=== PATIENT | male | born 1960 | race Caucasian/White ===

== ENCOUNTER 2021-05-25 06:18 | Inpatient (IN) | payer MEDICAID ==
[~2021-05-25] VITALS: Ht 180.3 cm; Wt 96.6 kg
--- NOTE | 2021-05-25 06:30 | NUR ---
BIBRA C/O HAVING A 200 SYSTOLIC BP WITH PAIN BEHIND LEFT SHOULDER. 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 PATIENT ALERT AND ORIENTED X3. AMBULATORY WITH NON LABORED BREATHING. PLACED IN BED 09 ON MONITOR AND POX.
--- NOTE | 2021-05-25 06:54 | NUR ---
EMT @ BEDSIDE FOR EKG
--- NOTE | 2021-05-25 06:54 | NUR ---
BLOOD COLLECTED AND SENT TO LAB
--- NOTE | 2021-05-25 06:54 | NUR ---
Gail mcgregor in [facility] - 05/25/21 at 0654 by CAITY REYNOLD DONE AND SENT TO LAB
[2021-05-25] MEDS ORDERED: ASPIRIN 81 MG TAB.CHEW PO ONE (07:00)
[2021-05-25] MEDS ORDERED: ASPIRIN 325 MG TABLET ONE (07:09)
[2021-05-25 07:11] LABS: BASOPHILS # (AUTO) 0.1 K/uL (0.0-0.2); BASOPHILS % (AUTO) 0.7 % (0.0-2.0); EOSINOPHILS % (AUTO) 4.3 % (0.0-6.0); HEMATOCRIT 40 % (39-51); HEMOGLOBIN 13.7 g/dL (13.5-17.5); LYMPHOCYTES # (AUTO) 1.5 K/uL (0.8-4.8); LYMPHOCYTES % (AUTO) 20.9 % (20.0-44.0); MEAN CORPUSCULAR HGB CONC 35 g/dl (31.0-36.0); MEAN CORPUSCULAR VOLUME 94 fL (80-96); MONOCYTES # (AUTO) 0.8 K/uL (0.1-1.30); MONOCYTES % (AUTO) 11.8 % (2.0-12.0); NEUTROPHILS # (AUTO) 4.4 K/uL (1.8-8.9); NEUTROPHILS % (AUTO) 62.3 % (43.0-81.0); PLATELET COUNT (AUTO) 172 K/uL (150-450); RED BLOOD CELL COUNT(AUTO) 4.25 MIL/uL (4.5-6.0)
[2021-05-25 07:46] LABS: CALCIUM, SERUM 8.8 mg/dL (8.5-10.1); CREATININE 0.9 mg/dL (0.6-1.3); POTASSIUM 3.3 mmol/L (3.5-5.1)
--- NOTE | 2021-05-25 07:46 | NUR ---
CARDIOLOGY PAGED DR. MEMBRENO SPEAKING WITH DR. GARCIA.
--- NOTE | 2021-05-25 07:47 | NUR ---
[facility] CALLED ALLOPATHIC DOCTOR PAGED.
--- NOTE | 2021-05-25 07:51 | NUR ---
UPDATED NICOLE ON PT'S STATUS & WILL BE ADMITTED
[2021-05-25] MEDS ORDERED: ENOXAPARIN SODIUM 80 MG/0.8 ML DISP.SYRIN SQ ONE (08:00)
[2021-05-25] MEDS ORDERED: NITROGLYCERIN 0.4 MG/TAB BOTTLE SL ONE (08:00)
[2021-05-25] MEDS ORDERED: ENOXAPARIN SODIUM 100 MG/ML DISP.SYRIN SQ ONE (08:09)
[2021-05-25] MEDS ORDERED: NITROGLYCERIN 0.4 MG/TAB BOTTLE ONE (08:09)
--- NOTE | 2021-05-25 08:20 | NUR ---
THE PATIENT REFUSED TO TAKE SECOND TAB OF NITRO SL. RATES CHEST PAIN 3/10.
--- NOTE | 2021-05-25 08:38 | NUR ---
COVID ANTIGEN SWAB DONE AND SENT TO THE LAB
[2021-05-25] MEDS ORDERED: ERTU15TA PO (08:49)
[2021-05-25] MEDS ORDERED: ATOR40TA PO (08:49)
[2021-05-25] MEDS ORDERED: ASPI-1420 PO (08:49)
[2021-05-25] MEDS ORDERED: ENAL-78 PO (08:49)
[2021-05-25] MEDS ORDERED: OMEP40CA21 PO (08:49)
[2021-05-25] MEDS ORDERED: METF-440 PO (08:49)
[2021-05-25] MEDS ORDERED: ONDANSETRON HCL/PF 4 MG/2 ML VIAL IVP PRN (09:30)
[2021-05-25] MEDS ORDERED: POTASSIUM CHLORIDE 20 MEQ TAB.PRT.SR PO ONE ×2 (09:30→09:43)
[2021-05-25] MEDS ORDERED: ENALAPRIL MALEATE (5 MG) 5 MG TABLET PO ONE (09:30)
[2021-05-25] MEDS ORDERED: ACETAMINOPHEN 325 MG TABLET PO PRN (09:30)
[2021-05-25] MEDS ORDERED: ENOXAPARIN SODIUM 40 MG/0.4 ML DISP.SYRIN SQ SCH (10:00)
--- NOTE | 2021-05-25 10:42 | NUR ---
ROOM 315-2
--- NOTE | 2021-05-25 11:32 | NUR ---
Report given to nurse Pickett for AYANNA
--- NOTE | 2021-05-25 11:33 | NUR ---
The patient is transfered to room 315-2 in stable conditon and per ACLS policy
--- NOTE | 2021-05-25 11:35 | NUR ---
RN NOTES PATIENT TRANSFERRED TO UNIT AT ROOM 315-2 VIA [facility], ACCOMPANIED BY 1 ER NURSE. PATIENT IS AMBULATORY W/ STEADY GAIT. NO COMPLAINT OF PAIN AT THIS TIME.
--- NOTE | 2021-05-25 11:52 | NUR ---
RN NOTES CALLED DIETARY FOR PATIENT'S LUNCH TRAY.
[2021-05-25 12:00] VITALS: BP_SYST 125; BP_SYST 145; BP_DIAS 52; BP_DIAS 90
--- NOTE | 2021-05-25 12:07 | NUR ---
RN NOTES PROVIDED LUNCH TRAY AND WATER TO PATIENT.
[2021-05-25] MEDS: METOPROLOL TARTRATE 25 MG TABLET PO SCH ×2 (14:38→21:02)
[2021-05-25] MEDS: ASPIRIN EC 325 MG TABLET.DR PO SCH (14:38)
[2021-05-25 16:00] VITALS: BP 128/80
[2021-05-25] MEDS: METFORMIN 500 MG TABLET PO SCH (16:05)
--- NOTE | 2021-05-25 16:15 | NUR ---
RN NOTES ADMITTED THIS 61-YEAR-OLD MALE FROM ER W/ CHIEF COMPLAINT OF L-SIDED SHOULDER PAIN RADIATING TO THE BACK W/ ADMITTING DX OF NSTEMI, SECONDARY IMPRESSION OF CHEST PAIN. PATIENT IS A/O X4, EQUATORIAL GUINEAN-SPEAKING, UNDERSTANDS INDONESIAN AND ABLE TO MAKE NEEDS KNOWN. BREATHING EVEN AND UNLABORED ON ROOM AIR, NOT IN ACUTE DISTRESS. ATTACHED TO EXTERNAL CELL ROOM OPERATOR W/ READING OF SR, HR IN THE 70'S, NO CARDIAC DISTRESS NOTED. PATIENT IS AMBULATORY W/ STEADY GAIT. NOTED W/ IV LINE ON RAC #18, INTACT AND PATENT. NO SKIN ISSUES NOTED. ABLE TO EAT AND DRINK W/ NO COMPLAINT OF NAUSEA/VOMITING/ASPIRATION. CONTINENT, ABLE TO USE BATHROOM. SAFETY MEASURES IN PLACE. ORIENTED PATIENT TO USE OF CALL LIGHT REMOTE FOR STAFF ASSISTANCE. WILL CONTINUE TO MONITOR.
--- NOTE | 2021-05-25 18:13 | NUR ---
RN NOTES PATIENT RESTING IN BED, NO COMPLAINT OF PAIN AT THIS TIME, LISTENING TO PRIVATE CELLPHONE. DUE MEDS GIVEN TODAY. ABLE TO EAT DINNER INDEPENDENTLY. SAFETY MEASURES MAINTAINED.
--- NOTE | 2021-05-25 19:45 | NUR ---
COMPOSITION MOLDER OPENING NOTES RECEIVED PATIENT LAYING AWAKE IN BED. A/O X4. PATIENT WITH REGULAR AND UNLABORED BREATHING ON ROOM AIR, TOLERATED WELL. NO SIGNS OR SYMPTOMS OF DISTRESS NOTED AT THIS TIME. NO COMPLAINS OF PAIN OR DISCOMFORT AT THIS TIME. PATIENT ON TELE MONITOR READING SR @ 70 BPM. IV ACCESS RAC G #18 SL. IV ACCESS PATENT AND INTACT. SAFETY PRECAUTIONS ENFORCED WITH BED LOCKED AND AT LOWEST POSITION. SIDERAILS UP X2. CALL LIGHT WITHIN REACH AT ALL TIMES. WILL CONTINUE TO MONITOR PATIENT.
[2021-05-25 20:00] VITALS: BP 141/90
[2021-05-26] VITALS: BP 142/79
[2021-05-26 04:00] VITALS: BP 130/83
[2021-05-26 06:18] LABS: BASOPHILS % (AUTO) 0.6 % (0.0-2.0); EOSINOPHILS % (AUTO) 4.2 % (0.0-6.0); HEMATOCRIT 40 % (39-51); HEMOGLOBIN 13.4 g/dL (13.5-17.5); LYMPHOCYTES # (AUTO) 1.8 K/uL (0.8-4.8); LYMPHOCYTES % (AUTO) 29.9 % (20.0-44.0); MEAN CORPUSCULAR HGB CONC 34 g/dl (31.0-36.0); MEAN CORPUSCULAR VOLUME 94 fL (80-96); MONOCYTES # (AUTO) 0.7 K/uL (0.1-1.30); MONOCYTES % (AUTO) 12.6 % (2.0-12.0); NEUTROPHILS # (AUTO) 3.1 K/uL (1.8-8.9); NEUTROPHILS % (AUTO) 52.7 % (43.0-81.0); PLATELET COUNT (AUTO) 200 K/uL (150-450); WHITE BLOOD COUNT (AUTO) 5.9 K/uL (4.3-11.0)
[2021-05-26 06:44] LABS: CALCIUM, SERUM 8.4 mg/dL (8.5-10.1); CREATININE 0.9 mg/dL (0.6-1.3); PHOSPHORUS 2.3 mg/dL (2.5-4.9); POTASSIUM 3.8 mmol/L (3.5-5.1)
--- NOTE | 2021-05-26 06:48 | NUR ---
ALTERNATIVE DISPUTE RESOLUTION MEDIATOR CLOSING NOTES PATIENT STILL LAYING AWAKE IN BED. A/O X4. PATIENT WITH REGULAR AND UNLABORED BREATHING ON ROOM AIR, TOLERATED WELL. NO SIGNS OR SYMPTOMS OF DISTRESS NOTED AT THIS TIME. NO COMPLAINS OF PAIN OR DISCOMFORT AT THIS TIME. PATIENT ON TELE MONITOR READING SR WITH FIRST DEGREE AV BLOCK @ 78 BPM. IV ACCESS RAC G #18 SL. IV ACCESS PATENT AND INTACT. SAFETY PRECAUTIONS ENFORCED WITH BED LOCKED AND AT LOWEST POSITION. SIDERAILS UP X2. CALL LIGHT WITHIN REACH AT ALL TIMES. WILL ENDORSE CONTINUITY OF CARE TO DAY SHIFT NURSE.
--- NOTE | 2021-05-26 07:30 | NUR ---
CHILLING HOOD OPERATOR OPENING NOTES RECEIVED PATIENT IN BED, AWAKE, A/O X4, VERBALLY RESPONSIVE, NO SIGNS OF ACUTE DISTRESS NOTED. ON ROOM AIR, TOLERATING WELL, NO SOB NOTED, BREATHING EVEN AND UNLABORED. ON TELE MONITOR WITH CURRENT READING OF SR @79. SAFETY MEASURES IN PLACE, BED IN LOWEST LOCKED POSITION, SR UP, CALL LIGHT PLACED WITHIN EASY REACH. WILL CONTINUE TO MONITOR.
[2021-05-26] MEDS: PANTOPRAZOLE 40 MG TABLET.DR PO SCH (07:53)
[2021-05-26 07:54] LABS: THYROID STIMULATING HORMONE 3.806 uIU/mL (0.358-3.74)
[2021-05-26] MEDS: ASPIRIN EC 325 MG TABLET.DR PO SCH (08:20)
[2021-05-26] MEDS: METFORMIN 500 MG TABLET PO SCH ×2 (08:20→16:46)
[2021-05-26] MEDS: ATORVASTATIN 40 MG TABLET PO SCH (08:20)
[2021-05-26] MEDS: ENALAPRIL MALEATE (5 MG) 5 MG TABLET PO SCH (08:21)
[2021-05-26] MEDS: METOPROLOL TARTRATE 25 MG TABLET PO SCH ×2 (08:21→20:53)
[2021-05-26] MEDS: ENOXAPARIN SODIUM 40 MG/0.4 ML DISP.SYRIN SQ SCH (08:22)
[2021-05-26] MEDS ORDERED: Medication Not On Formulary EA (Ertugliflozin Pidolate (Steglatro) 15 MG) PO SCH (09:00)
[2021-05-26] MEDS ORDERED: ASPIRIN EC 81 MG TABLET.DR PO SCH (09:00)
[2021-05-26] MEDS ORDERED: K PHOS NEUTRAL 250 MG TABLET PO ONE (12:30)
[2021-05-26] MEDS: SENNOSIDES/DOCUSATE SODIUM 1 TAB TABLET PO SCH (14:59)
--- NOTE | 2021-05-26 18:45 | NUR ---
ENVIRONMENTAL GEOLOGIST CLOSING NOTES PATIENT IN BED, AWAKE, A/O X4, VERBALLY RESPONSIVE, NO SIGNS OF ACUTE DISTRESS NOTED. REMAINS ON ROOM AIR, TOLERATING WELL, NO SOB NOTED, BREATHING EVEN AND UNLABORED. ON TELE MONITOR WITH CURRENT READING OF SR @73. ALL DUE MEDS GIVEN, TOLERATED WELL. SAFETY MEASURES IN PLACE, BED IN LOWEST LOCKED POSITION, SR UP, CALL LIGHT PLACED WITHIN EASY REACH. WILL ENDORSE TO NEXT SHIFT.
[2021-05-26 20:00] VITALS: BP 149/83
--- NOTE | 2021-05-26 21:40 | NUR ---
AMF MECHANIC OPENING NOTES PATIENT IN BED, AWAKE, A/O X4, VERBALLY RESPONSIVE, NO SIGNS OF ACUTE DISTRESS NOTED. REMAINS ON ROOM AIR, TOLERATING WELL, NO SOB NOTED, BREATHING EVEN AND UNLABORED. ON TELE MONITOR WITH CURRENT READING OF SR @73., TOLERATED WELL. SAFETY MEASURES IN PLACE, BED IN LOWEST LOCKED POSITION, SR UP, CALL LIGHT PLACED WITHIN EASY REACH. WILL CONTINUE TO MONITOR.
--- NOTE | 2021-05-26 21:56 | NUR ---
B2B ACCOUNT EXECUTIVE NOTES PT TO HAVE L HEART CATH TOMORROW @ [address] RUBI SPOKE TO PT DANIELLE, PT TO BE NPO AFTER MIDNIGHT. PER PT HE WOULD PREFER TO SIGN CONSENT TOMORROW AFTER SPEAKING TO THE DOCTOR FURTHER ABOUT PROCEDURE.
[2021-05-27] VITALS (13 sets, daily range): BP systolic 122–150; BP diastolic 73–95
[2021-05-27] MEDS: TEMAZEPAM 7.5 MG CAPSULE PO PRN (01:08)
--- NOTE | 2021-05-27 06:34 | NUR ---
FLOOR PERSON CLOSING NOTES PATIENT IN BED, AWAKE, A/O X4, VERBALLY RESPONSIVE, NO SIGNS OF ACUTE DISTRESS NOTED. REMAINS ON ROOM AIR, TOLERATING WELL, NO SOB NOTED, BREATHING EVEN AND UNLABORED. ON PT NOTED WITH RAC #18 G PATENT FLUSHING WELL. TELE MONITOR WITH CURRENT READING OF SR @78., TOLERATED WELL. PT TO HAVE LEFT CARDIAC CATH TODAY WITH DR RUBI @1PM CONSENT HAS NOT BEEN SIGNED YET PT SEEMS APPREHENSIVE ABOUT PROCEDURE AND COULD LIKE TO FURTHER DISCUSS WITH SOMEONE FORM DR RUBI'S TEAM BEFORE SIGNING.PT MAINTAINED NPO SINCE MIDNIGHT.ALL DUE MEDS GIVEN AND TOLERATED WELL. CALL LIGHT WITHIN REACH. TABLE WITHIN REACH. WILL ENDORSE CARE TO DAY SHIFTY NURSE.
[2021-05-27 07:06] LABS: CALCIUM, SERUM 8.3 mg/dL (8.5-10.1); CREATININE 0.7 mg/dL (0.6-1.3); MAGNESIUM 2.1 mg/dL (1.8-2.4); PHOSPHORUS 2.7 mg/dL (2.5-4.9); POTASSIUM 3.2 mmol/L (3.5-5.1)
[2021-05-27 07:32] LABS: BASOPHILS % (AUTO) 0.8 % (0.0-2.0); EOSINOPHILS % (AUTO) 4.9 % (0.0-6.0); HEMATOCRIT 38 % (39-51); HEMOGLOBIN 13.1 g/dL (13.5-17.5); LYMPHOCYTES # (AUTO) 1.7 K/uL (0.8-4.8); LYMPHOCYTES % (AUTO) 30.5 % (20.0-44.0); MEAN CORPUSCULAR HGB CONC 35 g/dl (31.0-36.0); MEAN CORPUSCULAR VOLUME 93 fL (80-96); MONOCYTES # (AUTO) 0.7 K/uL (0.1-1.30); MONOCYTES % (AUTO) 12.6 % (2.0-12.0); NEUTROPHILS # (AUTO) 2.8 K/uL (1.8-8.9); NEUTROPHILS % (AUTO) 51.2 % (43.0-81.0); PLATELET COUNT (AUTO) 208 K/uL (150-450); RED BLOOD CELL COUNT(AUTO) 4.05 MIL/uL (4.5-6.0); WHITE BLOOD COUNT (AUTO) 5.4 K/uL (4.3-11.0)
[2021-05-27] MEDS: PANTOPRAZOLE 40 MG TABLET.DR PO SCH (08:35)
[2021-05-27] MEDS: METFORMIN 500 MG TABLET PO SCH ×2 (09:00→18:36)
[2021-05-27] MEDS: ATORVASTATIN 40 MG TABLET PO SCH (09:00)
[2021-05-27] MEDS: ENOXAPARIN SODIUM 40 MG/0.4 ML DISP.SYRIN SQ SCH (09:00)
[2021-05-27] MEDS: METOPROLOL TARTRATE 25 MG TABLET PO SCH ×2 (09:00→20:08)
[2021-05-27] MEDS: ENALAPRIL MALEATE (5 MG) 5 MG TABLET PO SCH (09:00)
[2021-05-27] MEDS: SENNOSIDES/DOCUSATE SODIUM 1 TAB TABLET PO SCH (09:00)
[2021-05-27] MEDS: ASPIRIN EC 325 MG TABLET.DR PO SCH (09:41)
--- NOTE | 2021-05-27 09:42 | NUR ---
WITHHELD SOME MORNING MEDICATIONS PER SUPERVISOR FRONT RN DUE TO CARDIAC CATHETERIZATION PROCEDURE TODAY.
[2021-05-27] MEDS: POTASSIUM CHLORIDE 20 MEQ TAB.PRT.SR PO SCH ×2 (10:10→11:43)
[2021-05-27] MEDS ORDERED: NITROGLYCERIN IN 5 % DEXTROSE 250 ML IV ONE (10:33)
[2021-05-27] MEDS ORDERED: LIDOCAINE HCL/PF 1% 30 ML SDV ONE (10:33)
[2021-05-27] MEDS ORDERED: IODIXANOL 150 ML IV ONE (10:33)
[2021-05-27] MEDS ORDERED: MIDAZOLAM HCL 2 MG/2ML VIAL ONE (11:28)
[2021-05-27] MEDS ORDERED: FENTANYL PF 100MCG/2ML AMPUL ONE (11:28)
[2021-05-27] MEDS ORDERED: HEPARIN SODIUM, PORCINE 5000 UNITS/1 ML VIAL ONE (12:33)
[2021-05-27] MEDS ORDERED: HEPARIN SODIUM, PORCINE 1,000 UNIT/ML VIAL ONE ×2 (12:34→13:16)
[2021-05-27] MEDS ORDERED: IODIXANOL 320MG/ML 50 ML IV ONE (12:35)
[2021-05-27] MEDS ORDERED: TICAGRELOR 90 MG TABLET PO ONE (12:55)
--- NOTE | 2021-05-27 13:35 | NUR ---
RN NOTES PATIENT TRANSFERRED FROM MOTOR VEHICLE REPRESENTATIVE AFTER ANGIOGRAM. PATIENT HAS Dx OF Non-ST elevation myocardial infarction possibly type I. PATIENT ON TR BAND ON RIGHT FA INTACT, AWAKE, A/O X3/4. NO BLEEDING, VSS. NEW ORDER IS NS x 100ML X6HR, ORDERS FAXED TO THE PHARMACY. PER CARDIAC CASE TR AIR WILL REMOVE AFTER X2HR 3TO 5 ML OF [id number].UNTIL AIR COMPLETELY REMOVE.,, HOB ELEVATED 30 DEGREES, UE EXTENDED, NON CIRCUMFERENTIAL PRESSURE DRESSING. CALL LIGHT WITHIN TO RECH. OFFERED SOME WAHER, PATIENT COMFORTABLE RESTING IN THE BED. WILL FOLLOW UP.
--- NOTE | 2021-05-27 14:45 | NUR ---
RN NOTES REMOVED 3ML OF AIR AT THIS TIME, NO BLEEDING NOTES. SURROUNDING TISSUE INTACT.
--- NOTE | 2021-05-27 15:00 | NUR ---
RN NOTES REMOVED 3ML OF AIR , 1515--3ML OF AIR, 1530-3ML OF AIR, 1545-3 ML OF AIR NO BLEEDING NOTES APPLIED PRESSURE DRESSING, AND COVERED WITH TEGADERM. PATIENT STABLE. SEEN Dr MEMBRENO NEW ORDER IS FOLLOW, AND MEDICATION INTACT, APPLIED CARDIAC DIET.
[2021-05-27] MEDS: TICAGRELOR 90 MG TABLET PO SCH (17:00)
--- NOTE | 2021-05-27 18:30 | NUR ---
RN NOTES PATIENT STABLE INFUSING NS @100ML/HRON LEFT FA INTACT. PATIENT DUE MEDICATION ADMINISTERED, TOLERATED DINNER 100%. PATIENT USING URINAL. ENDORSED ONCOMING NURSE FOLLOW PLAN OF CARE.
[2021-05-27] MEDS ORDERED: IV NS 0.9% 1,000 ML IV PRN (19:00)
--- NOTE | 2021-05-27 19:30 | NUR ---
RN NOTE PATIENT ALERT AND ORIENTED X4, ABLE TO MAKE NEEDS KNOWN. ON ROOM AIR, NO S/S OF RESPIRATORY DISTRESS. DENIES ANY PAIN AT THIS TIME. IV ACCESS PATENT AND INTACT. BED LOCKED AND IN LOWEST POSITION. CALL LIGHT WITHIN REACH. ALL NEEDS ANTICIPATED.
--- NOTE | 2021-05-27 20:33 | NUR ---
RN NOTE PATIENT WANTING TO USE RESTROOM. OFFERRED BED [place] AND COMMODE. STILL INSISTING TO USE RESTROOM. NOTIFIED DR. DANIS SHETTY, INFORMED PATIENT IS POST CARDIAC CATH EARLIER TODAY, VITAL SIGNS STABLE. RECEIVED ORDER OKAY TO AMBULATE AND USE RESTROOM. NOTED AND CARRIED OUT.
[2021-05-28] VITALS (15 sets, daily range): BP systolic 116–154; BP diastolic 55–88
[2021-05-28] MEDS: TEMAZEPAM 7.5 MG CAPSULE PO PRN (00:28)
[2021-05-28 04:29] LABS: BASOPHILS # (AUTO) 0.1 K/uL (0.0-0.2); BASOPHILS % (AUTO) 0.9 % (0.0-2.0); EOSINOPHILS % (AUTO) 4.4 % (0.0-6.0); HEMATOCRIT 39 % (39-51); HEMOGLOBIN 13.5 g/dL (13.5-17.5); LYMPHOCYTES # (AUTO) 1.6 K/uL (0.8-4.8); LYMPHOCYTES % (AUTO) 24.5 % (20.0-44.0); MEAN CORPUSCULAR HGB CONC 35 g/dl (31.0-36.0); MEAN CORPUSCULAR VOLUME 92 fL (80-96); MONOCYTES # (AUTO) 0.6 K/uL (0.1-1.30); MONOCYTES % (AUTO) 9.1 % (2.0-12.0); NEUTROPHILS # (AUTO) 4.1 K/uL (1.8-8.9); NEUTROPHILS % (AUTO) 61.1 % (43.0-81.0); PLATELET COUNT (AUTO) 206 K/uL (150-450); RED BLOOD CELL COUNT(AUTO) 4.23 MIL/uL (4.5-6.0); WHITE BLOOD COUNT (AUTO) 6.7 K/uL (4.3-11.0)
[2021-05-28 04:41] LABS: CALCIUM, SERUM 8.5 mg/dL (8.5-10.1); CREATININE 0.7 mg/dL (0.6-1.3); MAGNESIUM 1.8 mg/dL (1.8-2.4); PHOSPHORUS 2.8 mg/dL (2.5-4.9); POTASSIUM 3.5 mmol/L (3.5-5.1)
--- NOTE | 2021-05-28 06:49 | NUR ---
RN NOTE PATIENT RESTING IN BED. ON ROOM AIR, NO S/S OF RESPIRATORY DISTRESS. DENIES ANY PAIN AT THIS TIME. IV ACCESS PATENT AND INTACT. RIGHT WRIST DRESSING FROM TR BAND INTACT, NO BLEEDING NOTED. NO SIGNIFICANT CHANGES DURING THIS SHIFT. BED LOCKED AND IN LOWEST POSITION. CALL LIGHT WITHIN REACH. WILL ENDORSE TO AM SHIFT.
[2021-05-28] MEDS: PANTOPRAZOLE 40 MG TABLET.DR PO SCH (07:19)
--- NOTE | 2021-05-28 08:00 | NUR ---
RN NOTES RECEIVED PATIENT IN THE BED RESTING, A/O X4, NO ACUTE RESPIRATORY DISTRESS, ON ROOM AIR, NO S/S OF RESPIRATORY DISTRESS. DENIES ANY PAIN AT THIS TIME. IV ACCESS PATENT AND INTACT. RIGHT WRIST DRESSING FROM TR BAND INTACT, NO BLEEDING NOTED. DUE MEDICATION . BED LOCKED AND IN LOWEST POSITION. CALL LIGHT WITHIN REACH. PATIENT TOLERATED BREAKFAST WELL, AMBULATORY, SELF CARE. USING BATHROOM. WILL FOLLOW UP.
[2021-05-28] MEDS: METFORMIN 500 MG TABLET PO SCH (08:42)
[2021-05-28] MEDS: ATORVASTATIN 40 MG TABLET PO SCH (08:42)
[2021-05-28] MEDS: METOPROLOL TARTRATE 25 MG TABLET PO SCH (08:42)
[2021-05-28] MEDS: SENNOSIDES/DOCUSATE SODIUM 1 TAB TABLET PO SCH (08:42)
[2021-05-28] MEDS: ENOXAPARIN SODIUM 40 MG/0.4 ML DISP.SYRIN SQ SCH (08:44)
[2021-05-28] MEDS ORDERED: ASPIRIN 81 MG TAB.CHEW PO SCH (09:00)
[2021-05-28] MEDS: TICAGRELOR 90 MG TABLET PO SCH (09:27)
[2021-05-28] MEDS: ENALAPRIL MALEATE (5 MG) 5 MG TABLET PO SCH (10:44)
--- NOTE | 2021-05-28 13:05 | NUR ---
rn transplant notes patient discharge home self care at this time. Seen hospitalist Dr Serrano, prescription given by hand. patient will follow cardiologists Dr Rodrigez, and PCP. Explained discharge planing, and given paperwork. patient verbalized understanding. Sales Representative Graphic Art information handed to the patient.Patient sign paperwork. belonging with the patient. Patient escorted to the lobby for safety. patient tile picker by .
== END 2021-05-28 13:24 | disposition home or self-care (01) | DRG 174 ==
LOC: ER 06:22 → MED 10:43 → TELE 11:44 → ICU 05-27 14:06
PROVIDERS: ADMIT Nurse Practitioner Acute Care
PROC: 027037Z Dilation of Coronary Artery, One Artery with Four or More Drug-eluting Intraluminal Devices, Percutaneous Approach (ICD-10-PCS; principal; 2021-05-27)
PROC: 4A023N7 Measurement of Cardiac Sampling and Pressure, Left Heart, Percutaneous Approach (ICD-10-PCS; 2021-05-27)
PROC: 02C03ZZ Extirpation of Matter from Coronary Artery, One Artery, Percutaneous Approach (ICD-10-PCS; 2021-05-27)
PROC: B211YZZ Fluoroscopy of Multiple Coronary Arteries using Other Contrast (ICD-10-PCS; 2021-05-27)
DX: I21.4 Non-ST elevation (NSTEMI) myocardial infarction (principal); N17.9 Acute kidney failure, unspecified; E11.9 Type 2 diabetes mellitus without complications; I16.0 Hypertensive urgency; I10 Essential (primary) hypertension; E78.5 Hyperlipidemia, unspecified; E87.6 Hypokalemia; K21.9 Gastro-esophageal reflux disease without esophagitis; Z79.84 Long term (current) use of oral hypoglycemic drugs; Z20.822 Contact with and (suspected) exposure to COVID-19
CPT/HCPCS: 36415; 71045-TC; 80048-TC; 80061-TC; 83735-TC; 83880; 84100-TC; 84443-TC; 84484-TC; 85025-TC; 85610-TC; 85730-TC; 87081-TC; 92980; 93307-TC; C1725; C1769; C1887; C9803; G0378; G0500; J1644; J1650; J2250; J3010; J3490; Q9967

== ENCOUNTER 2023-01-12 15:12 | Inpatient (IN) | payer MEDICARE, OTHER ==
[~2023-01-12] VITALS: Ht 175.3 cm; Wt 91.2 kg
[~2023-01-12 15:12] MED LIST: ASPI-1420 PO; ATOR40TA PO; ENAL-78 PO; ERTU15TA PO; METF-440 PO; OMEP40CA21 PO
[2023-01-12 16:24] LABS: BASOPHILS % (AUTO) 0.6 % (0.0-2.0); EOSINOPHILS # (AUTO) 0.3 K/uL (0.0-0.7); HEMATOCRIT 40 % (39-51); HEMOGLOBIN 13.5 g/dL (13.5-17.5); LYMPHOCYTES # (AUTO) 1.8 K/uL (0.8-4.8); LYMPHOCYTES % (AUTO) 26.6 % (20.0-44.0); MEAN CORPUSCULAR HEMOGLOBIN 30 PG (26.0-33.0); MEAN CORPUSCULAR HGB CONC 34 g/dl (31.0-36.0); MEAN CORPUSCULAR VOLUME 90 fL (80-96); MONOCYTES # (AUTO) 0.6 K/uL (0.1-1.30); MONOCYTES % (AUTO) 8.5 % (2.0-12.0); NEUTROPHILS % (AUTO) 59.3 % (43.0-81.0); PLATELET COUNT (AUTO) 226 K/uL (150-450); RED BLOOD CELL COUNT(AUTO) 4.48 MIL/uL (4.5-6.0); RED CELL DISTRIBUTION WIDTH 13.9 % (11.5-15.0); WHITE BLOOD COUNT (AUTO) 6.7 K/uL (4.3-11.0)
[2023-01-12 16:35] LABS: CALCIUM, SERUM 9.4 mg/dL (8.5-10.1); CARBON DIOXIDE 20 mmol/L (21-32); CHLORIDE 102 mmol/L (98-107); CREATININE 0.8 mg/dL (0.6-1.3); GLUCOSE 129 mg/dL (74-106); POTASSIUM 3.9 mmol/L (3.5-5.1); SODIUM SERUM 137 mmol/L (136-145); UREA NITROGEN, BLOOD 22 mg/dL (7-18)
[2023-01-12 17:00] VITALS: O2SAT 100
[2023-01-12] MEDS ORDERED: ASPIRIN 325 MG TABLET PO ONE (17:00)
[2023-01-12] MEDS ORDERED: TICA90TA PO (17:12)
[2023-01-12] MEDS ORDERED: LISI10TA29 PO (17:12)
[2023-01-12] MEDS ORDERED: DULA0.75 SQ (17:12)
[2023-01-12] MEDS ORDERED: METF-442 PO (17:12)
[2023-01-12] MEDS ORDERED: CLON0.1T PO (17:12)
[2023-01-12] MEDS ORDERED: ASPIRIN 325 MG TABLET ONE (17:27)
[2023-01-12] MEDS ORDERED: ZOLPIDEM TARTRATE 5 MG TABLET PO PRN (19:30)
[2023-01-12] MEDS ORDERED: MAGNESIUM HYDROXIDE 30 ML UDC PO PRN (19:30)
[2023-01-12] MEDS ORDERED: MAG HYDROX/AL HYDROX/SIMETH 30 ML UDC PO PRN (19:30)
[2023-01-12] MEDS ORDERED: INSULIN REGULAR, HUMAN 100 UNIT/ML 3 ML VIAL SQ PRN (19:30)
[2023-01-12] MEDS ORDERED: Z GUARD REMEDY 4 OZ OINT TP PRN (19:30)
[2023-01-12] MEDS ORDERED: DEXTROSE 50%-WATER 50 ML DISP.SYRIN IV PRN (19:30)
[2023-01-12] MEDS ORDERED: ACETAMINOPHEN 325 MG TABLET PO PRN (19:30)
[2023-01-12] MEDS ORDERED: ONDANSETRON HCL/PF 4 MG/2 ML VIAL IVP PRN (19:30)
[2023-01-12] MEDS ORDERED: IV NS 0.9% 1,000 ML IV ONE (19:30)
[2023-01-12 20:10] VITALS: BP 149/85; TEMP 97.9; O2SAT 98
[2023-01-12] MEDS: BLOOD SUGAR DIAGNOSTIC 1 EACH STRIP IN SCH (21:33)
[2023-01-12] MEDS ORDERED: ATORVASTATIN 40 MG TABLET PO SCH (22:00)
[2023-01-13] VITALS: BP 149/82; TEMP 97.7; O2SAT 97
[2023-01-13 04:00] VITALS: BP 150/87; TEMP 97.7; O2SAT 97
[2023-01-13] MEDS: BLOOD SUGAR DIAGNOSTIC 1 EACH STRIP IN SCH (06:25)
[2023-01-13 08:00] VITALS: BP 129/103; TEMP 97.7; O2SAT 98
[2023-01-13 08:37] LABS: BASOPHILS # (AUTO) 0.1 K/uL (0.0-0.2); BASOPHILS % (AUTO) 0.7 % (0.0-2.0); EOSINOPHILS # (AUTO) 0.5 K/uL (0.0-0.7); EOSINOPHILS % (AUTO) 6.5 % (0.0-6.0); HEMATOCRIT 46 % (39-51); HEMOGLOBIN 15.4 g/dL (13.5-17.5); LYMPHOCYTES # (AUTO) 2.2 K/uL (0.8-4.8); LYMPHOCYTES % (AUTO) 30.1 % (20.0-44.0); MEAN CORPUSCULAR HEMOGLOBIN 30 PG (26.0-33.0); MEAN CORPUSCULAR HGB CONC 33 g/dl (31.0-36.0); MEAN CORPUSCULAR VOLUME 91 fL (80-96); MONOCYTES # (AUTO) 0.5 K/uL (0.1-1.30); MONOCYTES % (AUTO) 7.1 % (2.0-12.0); NEUTROPHILS % (AUTO) 55.6 % (43.0-81.0); PLATELET COUNT (AUTO) 274 K/uL (150-450); RED BLOOD CELL COUNT(AUTO) 5.08 MIL/uL (4.5-6.0); RED CELL DISTRIBUTION WIDTH 14.3 % (11.5-15.0); WHITE BLOOD COUNT (AUTO) 7.2 K/uL (4.3-11.0)
[2023-01-13 08:48] LABS: CALCIUM, SERUM 9.4 mg/dL (8.5-10.1); CREATININE 0.8 mg/dL (0.6-1.3); MAGNESIUM 2.1 mg/dL (1.8-2.4); PHOSPHORUS 3.8 mg/dL (2.5-4.9); POTASSIUM 3.9 mmol/L (3.5-5.1)
[2023-01-13] MEDS ORDERED: TICAGRELOR 90 MG TABLET PO SCH (09:00)
[2023-01-13] MEDS ORDERED: LISINOPRIL (10MG) 10 MG TABLET PO SCH (09:00)
[2023-01-13] MEDS ORDERED: ASPIRIN EC 81 MG TABLET.DR PO SCH (09:00)
[2023-01-13 09:55] VITALS: BP 129/81
[2023-01-13] MEDS ORDERED: ASPI-992 PO (10:19)
== END 2023-01-13 13:00 | disposition home or self-care (01) | DRG 640 ==
LOC: ER 15:15 → TELE 19:31
PROVIDERS: ADMIT Nurse Practitioner Acute Care; ATTEND Nurse Practitioner Acute Care
DX: E86.0 Dehydration (principal); I21.A1 Myocardial infarction type 2; I11.0 Hypertensive heart disease with heart failure; I50.9 Heart failure, unspecified; I25.10 Atherosclerotic heart disease of native coronary artery without angina pectoris; E78.5 Hyperlipidemia, unspecified; E11.9 Type 2 diabetes mellitus without complications; Z79.84 Long term (current) use of oral hypoglycemic drugs; Z79.82 Long term (current) use of aspirin; Z79.899 Other long term (current) drug therapy; R79.89 Other specified abnormal findings of blood chemistry; Z79.02 Long term (current) use of antithrombotics/antiplatelets; Z95.5 Presence of coronary angioplasty implant and graft
CPT/HCPCS: 36415; 71045-TC; 80048-TC; 80061-TC; 82550-TC; 83605-TC; 83735-TC; 84100-TC; 84484-TC; 85025-TC; 85378-TC; A4223; G0378; J1815; J7030